=== PATIENT | female | born 1970 | race Caucasian/White ===

== ENCOUNTER → 2017-06-12 | Outpatient (CLI) | payer MEDICARE, OTHER ==
[~2017-06-12] MED LIST: ALBIPROI; ALBIPROI IH; ALBU90OI; ALBU90OI INH; ALBUIS IH; ALBUTEROL UPDRAFT; AMOX500 PO; ARIP10 PO; AZIT250 PO; AZIT500 PO; BENZ1 PO; Bactrim Ds Tab1 EACH PO; Benztropine Mesy1 MG; CALCPOTTC TP; CALMAGZIN; CELEBREX 200MG; CEPH500 PO; CERTAGEN PO; CIPR500 PO; CODGUAEL PO; Cleocin HCl150 MG PO; DICL50ER; DIPH25; DIPH25 PO; DIPH50; DULO30 PO; DULO60; DULO60 PO; ESCI10; ESCI20; ESCI20 PO; ESOM20 PO; FLUSAL2505; FLUSAL2505 IH; Flovent 110 MCG12 GM; HYDACE5; HYDACE5 PO; INVEGA PO; LAVAP4L PO; LEVFLO250 PO; LEVFLO500 PO; LEVSOD25 PO; LEVSOD50 PO; LEVSOD75 PO; LITH300C; LITH300C PO; LITH450ER; LITH450ER PO; LORA1 PO; LORA2 PO; LOVA20; LOVA20 PO; LOVASTATIN PO; Lovastatin20 MG; MAGCIT300 PO; METF500 PO; METF500C; MISO200; MONT10T; MONT10T PO; MULVITMINE PO; MUPI2TO TOP; OLAN10 PO; OLAN20 MM; OMEP20ER; OMEP20ER PO; OXCA300; OXCA300 PO; PENVK500 PO; POLY17UD PO; PRED10 PO; PRED20 PO; PROACE100; PROACE100 PO; Prilosec Otc20 MG; QUET200; QUET200 PO; QUET25 PO; RANI150; RXLORA1 PO; SULTRIDS PO; SULTRIEL PO; SULTRISS PO; TEGRETOL; TOPI100; TOPI100 PO; TOPI15C; TOPI25; TRAM50; TRAM50 PO; TRAZ100; TRAZODONE 200 MG; TRIA80TC; TRIA80TC TOP; Ventolin Soln3 ML; Verotin-Gr Cap1 EACH PO; Zofran Odt8 MG SL
[2017-06-12 13:30] LABS: Source, Urine Clean Catch
[2017-06-12 16:57] LABS: Bilirubin, Urine Neg (Neg); Blood, Urine 1+ (Neg); Glucose Qualitative, Urine Neg (Neg); Ketones, Urine Neg (Neg); Leukocyte Esterase, Urine 3+ (Neg); Nitrite, Urine Neg (Neg); Protein, Urine Neg (Neg); Urobilinogen, Urine NORM (Normal); pH, Urine 6.5 (5.0-8.0)
[2017-06-12 16:58] LABS: Appearance, Urine Hazy (Clear); Color, Urine Yellow (P-Yellow)
[2017-06-12 16:59] LABS: Bacteria Mod /hpf; Red Blood Cells, Urine Not Seen /hpf (0-2); Squamous Epithelial Cells Few /hpf (Few); White Blood Cells, Urine 25-50 /hpf (0-5)
== END ==
LOC: LAB 13:29
PROVIDERS: Nurse Practitioner Family
DX: N39.0 Urinary tract infection, site not specified (principal)
CPT/HCPCS: 81001; 87077; 87086; 87186

== ENCOUNTER → 2017-09-10 | Outpatient (CLI) | payer MEDICARE, OTHER ==
[~2017-09-10] MED LIST changes: -Benztropine Mesy1 MG; -DULO60; -LEVSOD75 PO; -Lovastatin20 MG; -TOPI15C; -Verotin-Gr Cap1 EACH PO
[2017-09-10 18:11] LABS: BASOPHILS ABSOLUTE AUTO 0.05 K/mm3 (0.00-0.23); BASOPHILS PERCENT AUTO 1 % (0-2); EOSINOPHILS ABSOLUTE AUTO 0.24 K/mm3 (0.00-0.68); EOSINOPHILS PERCENT AUTO 3 % (0-6); Hematocrit 39.9 % (33.0-51.0); Hemoglobin 13.4 g/dL (11.5-16.0); IMMATURE GRAN ABSOLUTE AUTO 0.01 K/mm3 (0.00-0.10); IMMATURE GRAN PERCENT AUTO 0 % (0-1); LYMPHOCYTES PERCENT AUTO 23 % (21-46); MONOCYTES ABSOLUTE AUTO 0.48 K/mm3 (0.16-1.47); MONOCYTES PERCENT AUTO 6 % (4-13); Mean Corpuscular HGB 32.4 pg (26.0-34.0); Mean Corpuscular HGB Conc 33.6 g/dL (31.5-36.5); Mean Corpuscular Volume 97 fL (80-100); NEUTROPHILS ABSOLUTE AUTO 5.05 K/mm3 (1.96-9.15); NEUTROPHILS PERCENT AUTO 67 % (41-73); Platelet Count 252 K/mm3 (150-400); RDW Coefficient Variation 13.7 % (11.7-14.2); RDW Standard Deviation 49.1 fL (35.1-46.3); Red Blood Cell Count 4.13 M/mm3 (3.80-5.20); White Blood Cell Count 7.53 K/mm3 (4.00-11.30)
[2017-09-10 19:02] LABS: Free Thyroxine 0.98 ng/dL (0.70-1.60); Very Low Density Lipoprot Chol 27 mg/dL (6-32)
[2017-09-10 19:21] LABS: Alanine Aminotransfer (ALT/SGP 17 U/L (12-78); Albumin, Blood 3.7 g/dL (3.4-5.0); Albumin/Globulin Ratio 1.2 (0.8-1.8); Alk Phos 74 U/L (50-136); Anion Gap 8 mmol/L (6-16); Aspartate Aminotrans (AST/SGOT 14 U/L (12-37); Bilirubin, Total 0.3 mg/dL (0.1-1.0); Blood Urea Nitrogen 20 mg/dL (8-24); Bun/Creatinine Ratio 13.3 (12.0-20.0); CHOL/HDL RATIO 3.3; CO2, Blood 21 mmol/L (21-32); Calcium, Blood 8.7 mg/dL (8.5-10.1); Chloride, Blood 116 mmol/L (98-108); Cholesterol 125 mg/dL (50-200); Globulin, Blood 3.2 g/dL (2.2-4.0); Glomerular Filtration Rate 40 (60-); Glucose, Blood 87 mg/dL (70-99); HDL Cholesterol 38 mg/dL (>39); LDL/HDL RATIO 1.6; Low Density Lipoprotein Chol 60 mg/dL (0-110); Potassium, Blood 4.3 mmol/L (3.5-5.5); Sodium, Blood 145 mmol/L (136-145); Total Protein, Blood 6.9 g/dL (6.4-8.2); Triglycerides 135 mg/dL (30-160)
== END | disposition home or self-care (01) ==
LOC: LAB 17:30 → LAB SHORT 17:30
PROVIDERS: Nurse Practitioner Primary Care
DX: E11.9 Type 2 diabetes mellitus without complications (principal); E03.9 Hypothyroidism, unspecified
CPT/HCPCS: 80053; 80061; 84439; 84443; 85025

== ENCOUNTER 2018-02-06 03:25 | Emergency (ER) | payer MEDICARE, OTHER ==
[~2018-02-06] VITALS: Ht 162.6 cm; Wt 68.0 kg
[2018-02-06] MEDS ORDERED: Bactrim Ds Tab1 EACH PO (03:57)
== END 2018-02-06 04:22 | disposition home or self-care (01) ==
LOC: ER 03:25
DX: S70.262A Insect bite (nonvenomous), left hip, initial encounter (principal); L03.116 Cellulitis of left lower limb; F31.9 Bipolar disorder, unspecified; J45.909 Unspecified asthma, uncomplicated; Z88.8 Allergy status to other drugs, medicaments and biological substances; Z88.6 Allergy status to analgesic agent; Z88.1 Allergy status to other antibiotic agents; Z79.899 Other long term (current) drug therapy; Z79.51 Long term (current) use of inhaled steroids; W57.XXXA Bitten or stung by nonvenomous insect and other nonvenomous arthropods, initial encounter
CPT/HCPCS: 99282

== ENCOUNTER → 2018-08-21 | Outpatient (CLI) | payer MEDICARE, OTHER ==
[~2018-08-21] MED LIST changes: +Benztropine Mesy1 MG; +DULO60; +LEVSOD75 PO; +Lovastatin20 MG; +TOPI15C; +Verotin-Gr Cap1 EACH PO
[2018-08-21 19:20] LABS: Follicle Stimulating Hormone 4.8 mIU/ml; Luteinizing Hormone 12.6 mIU/ml
[2018-08-23 15:07] LABS: HPV 16 Negative (Negative); HPV 18 Negative (Negative); HPV OTHER HR TYPES Negative (Negative)
== END ==
LOC: LAB 17:56 → LAB SHORT 17:56
PROVIDERS: Registered Nurse Community Health
DX: Z01.419 Encounter for gynecological examination (general) (routine) without abnormal findings (principal); N95.1 Menopausal and female climacteric states
CPT/HCPCS: 83001; 83002; 87624; G0123

== ENCOUNTER 2019-06-21 17:35 | Inpatient (IN) | payer MEDICARE, OTHER ==
[~2019-06-21] VITALS: Ht 162.6 cm; Wt 72.2 kg
[~2019-06-21 17:35] MED LIST changes: +Benztropine Mesy1 MG PO; -LEVSOD75 PO; -Lovastatin20 MG; +Lovastatin20 MG PO
[2019-06-21 18:39] LABS: BASOPHILS ABSOLUTE AUTO 0.07 K/mm3 (0.00-0.23); BASOPHILS PERCENT AUTO 0 % (0-2); EOSINOPHILS ABSOLUTE AUTO 0.02 K/mm3 (0.00-0.68); EOSINOPHILS PERCENT AUTO 0 % (0-6); Hematocrit 34.7 % (33.0-51.0); Hemoglobin 11.3 g/dL (11.5-16.0); IMMATURE GRAN ABSOLUTE AUTO 0.82 K/mm3 (0.00-0.10); IMMATURE GRAN PERCENT AUTO 4 % (0-1); LYMPHOCYTES ABSOLUTE AUTO 1.12 K/mm3 (0.84-5.20); LYMPHOCYTES PERCENT AUTO 6 % (21-46); MONOCYTES ABSOLUTE AUTO 0.83 K/mm3 (0.16-1.47); MONOCYTES PERCENT AUTO 4 % (4-13); Mean Corpuscular HGB 30.2 pg (26.0-34.0); Mean Corpuscular HGB Conc 32.6 g/dL (31.5-36.5); Mean Corpuscular Volume 93 fL (80-100); Mean Platelet Volume 10.4 fL (9.1-12.4); NEUTROPHILS PERCENT AUTO 85 % (41-73); Platelet Count 405 K/mm3 (150-400); RDW Coefficient Variation 14.1 % (11.7-14.2); RDW Standard Deviation 48.4 fL (35.1-46.3); Red Blood Cell Count 3.74 M/mm3 (3.80-5.20); White Blood Cell Count 18.66 K/mm3 (4.00-11.30)
[2019-06-21 19:00] LABS: Alanine Aminotransfer (ALT/SGP 104 U/L (12-78); Albumin, Blood 2.2 g/dL (3.4-5.0); Albumin/Globulin Ratio 0.3 (0.8-1.8); Alk Phos 264 U/L (50-136); Anion Gap 12 mmol/L (6-16); Aspartate Aminotrans (AST/SGOT 87 U/L (12-37); Bilirubin, Total 0.6 mg/dL (0.1-1.0); Blood Urea Nitrogen 49 mg/dL (8-24); Bun/Creatinine Ratio 12.1 (12.0-20.0); CO2, Blood 17 mmol/L (21-32); Calcium, Blood 9.3 mg/dL (8.5-10.1); Chloride, Blood 106 mmol/L (98-108); Creatinine, Blood 4.04 mg/dL (0.40-1.00); Globulin, Blood 6.8 g/dL (2.2-4.0); Glomerular Filtration Rate 13 (60-); Glucose, Blood 161 mg/dL (70-99); Potassium, Blood 3.2 mmol/L (3.5-5.5); Sodium, Blood 135 mmol/L (136-145)
[2019-06-21 19:01] LABS: Source, Urine Clean Catch
[2019-06-21 19:12] LABS: Appearance, Urine Hazy (Clear); Bilirubin, Urine Neg (Neg); Blood, Urine 3+ (Neg); Color, Urine Yellow (P-Yellow); Glucose Qualitative, Urine Neg (Neg); Ketones, Urine Neg (Neg); Leukocyte Esterase, Urine 3+ (Neg); Nitrite, Urine Neg (Neg); Protein, Urine 2+ (Neg); Urobilinogen, Urine NORM (Normal)
[2019-06-21 19:23] LABS: White Blood Cells, Urine 50-100 /hpf (0-5)
[2019-06-21 19:24] LABS: Bacteria Many /hpf; Squamous Epithelial Cells Few /hpf (Few)
[2019-06-21 20:20] LABS: Acetaminophen, Random <2.0 ug/mL (10.0-30.0); CPK Creatine Kinase 32 U/L (26-193); Ethanol (Alcohol), Blood, Med <3 mg/dL; Salicylate <1.7 mg/dL (2.8-20.0)
[2019-06-21 20:26] LABS: U Amphetamine Screen Not Detected; U Barbituate Screen Not Detected; U Benzodiazapine Screen Not Detected; U Buprenorphine Screen Not Detected; U Cannabinoids Screen Not Detected; U Cocaine Screen Not Detected; U Methadone Screen Not Detected; U Methamphetamine Screen Not Detected; U Opiates Screen Not Detected; U Oxycodone Screen Not Detected; U Phencyclidine Screen DETECTED; U Propoxyphene Screen Not Detected
[2019-06-21 21:05] LABS: Lithium <0.20 mmol/L (0.60-1.20)
[2019-06-22 04:49] LABS: BASOPHILS ABSOLUTE AUTO 0.06 K/mm3 (0.00-0.23); BASOPHILS PERCENT AUTO 0 % (0-2); EOSINOPHILS PERCENT AUTO 0 % (0-6); Hematocrit 24.6 % (33.0-51.0); Hemoglobin 8.1 g/dL (11.5-16.0); IMMATURE GRAN ABSOLUTE AUTO 0.87 K/mm3 (0.00-0.10); IMMATURE GRAN PERCENT AUTO 4 % (0-1); LYMPHOCYTES ABSOLUTE AUTO 0.72 K/mm3 (0.84-5.20); LYMPHOCYTES PERCENT AUTO 4 % (21-46); MONOCYTES ABSOLUTE AUTO 0.87 K/mm3 (0.16-1.47); MONOCYTES PERCENT AUTO 4 % (4-13); Mean Corpuscular HGB Conc 32.9 g/dL (31.5-36.5); Mean Corpuscular Volume 91 fL (80-100); Mean Platelet Volume 10.4 fL (9.1-12.4); NEUTROPHILS ABSOLUTE AUTO 17.25 K/mm3 (1.96-9.15); NEUTROPHILS PERCENT AUTO 87 % (41-73); Platelet Count 343 K/mm3 (150-400); RDW Coefficient Variation 14.1 % (11.7-14.2); RDW Standard Deviation 47.1 fL (35.1-46.3); White Blood Cell Count 19.77 K/mm3 (4.00-11.30)
--- NOTE | 2019-06-22 04:49 | NUR ---
SHIFT SUMMARY PT ARRIVED TO FLOOR NAUSEATED AND VOMITED UPON ARRIVAL. PT HAS BEEN MEDICATED FOR N/V AND PAIN WITH LITTLE RELIEF. ORDER FOR FENTANYL AND OT DOSE OF REGLAN WAS OBTAINED FROM PROVIDER. PT HAS NOT SLEPT MUCH DURING THE SHIFT. PT IS CURRENTLY AWAKE AND MORE COMFORTABLE THAN WHEN SHE ARRIVED. CALL LIGHT IN REACH.
[2019-06-22 05:09] LABS: Bun/Creatinine Ratio 13.2 (12.0-20.0); Calcium, Blood 8.1 mg/dL (8.5-10.1); Creatinine, Blood 3.26 mg/dL (0.40-1.00); Potassium, Blood 3.5 mmol/L (3.5-5.5)
--- NOTE | 2019-06-22 18:46 | NUR ---
SHIFT SUMMARY PT INDEPENDENT TO BATHROOM. REPORTS PAIN TO BACH THAT RESOLVES WHEN SHE REPOSITIONS IN BED OR GETS UP IN A SITTING POSITION. HAS A TENDENCY TO SLOUCH. HAD EMESIS WITH COUGHING SEVERAL TIMES TODAY BUT AFTER TESSALON GIVEN COUGHING DECREASED AND NO FURTHER EMESIS. OFFERED TO ADVANCE DIET BUT PT DECLINED AT THIS TIME. NO FEVERS NOTED.
[2019-06-23 04:56] LABS: Hematocrit 22.7 % (33.0-51.0); Hemoglobin 7.6 g/dL (11.5-16.0); Mean Corpuscular HGB 30.8 pg (26.0-34.0); Mean Corpuscular HGB Conc 33.5 g/dL (31.5-36.5); Mean Corpuscular Volume 92 fL (80-100); Mean Platelet Volume 10.3 fL (9.1-12.4); Platelet Count 366 K/mm3 (150-400); RDW Coefficient Variation 14.3 % (11.7-14.2); RDW Standard Deviation 48.2 fL (35.1-46.3); Red Blood Cell Count 2.47 M/mm3 (3.80-5.20)
[2019-06-23 05:18] LABS: Albumin, Blood 1.6 g/dL (3.4-5.0); Anion Gap 9 mmol/L (6-16); Blood Urea Nitrogen 31 mg/dL (8-24); Bun/Creatinine Ratio 11.2 (12.0-20.0); CO2, Blood 20 mmol/L (21-32); Calcium, Blood 8.8 mg/dL (8.5-10.1); Chloride, Blood 118 mmol/L (98-108); Creatinine, Blood 2.77 mg/dL (0.40-1.00); Glomerular Filtration Rate 19 (60-); Glucose, Blood 104 mg/dL (70-99); Phosphorus, Blood 3.4 mg/dL (2.5-4.9); Potassium, Blood 3.4 mmol/L (3.5-5.5); Sodium, Blood 147 mmol/L (136-145)
--- NOTE | 2019-06-23 05:59 | NUR ---
SHIFT SUMMARY- NO ACUTE CHANGES OVERNIGHT. PT. APPEARED TO HAVE RESTED COMFORTABLY T/O THE SHIFT, NO APPARENT DISTRESS NOTED. PT. DENIED ANY PAIN OR DISCOMFORT LAST NIGHT. IV FLUIDS INFUSING. PT. WAS ABLE TO GET UP TO THE BATHROOM W/1ASSIST. CALL LIGHT WITHIN REACH AND SIDE RAILS UP X2. WILL CONT TO MONITOR.
[2019-06-23] MEDS ORDERED: HYDPAM50 PO (13:14)
--- NOTE | 2019-06-23 14:26 | NUR ---
PT GAVE PERMISSION TO HELP WITH CARE ON 06/23/2019 FOR 06/24/2019
--- NOTE | 2019-06-23 19:17 | NUR ---
SHIFT SUMAMRY: NO ACUTE CHANGES TO REPORT THIS SHIFT. PT A&O; CALM AND COOEPRATIVE WITH CARE; DEVELOPMENTALLY DELAYED. NO C/O PAIN OR NAUSEA THIS SHIFT. FLUIDS D/C'd THIS SHIFT; SALINE LOCK. DIET ADVANCED TO FULL LIQUIDS; PT TOLERATING WELL. REPORT GIVEN TO ONCOMING RN.
--- NOTE | 2019-06-23 19:24 | NUR ---
RECEIVED BEDSIDE REPORT FROM TAMARA RN. PT SITTING ON BED CROSS LEGGED, RESP E/U ON RA. USES CALL LT APPROPRIATELY. SALINE LOCKED. WILL MONITOR AND PROVIDE CARE T/O SHIFT. CALL LT IN REACH.
--- NOTE | 2019-06-23 21:03 | NUR ---
PT WATCHING TV. ICE WATER GIVEN TO PT. PT TOLERATING WELL. CALL LT IN REACH.
--- NOTE | 2019-06-23 23:35 | NUR ---
PT RESTING AT THIS TIME. CALL LT IN REACH.
--- NOTE | 2019-06-24 02:16 | NUR ---
PT CAME OUT OF HER ROOM AND WAS WALKING NEAR THE ACC DESK WITHOUT DIFFICULTY. WENT BACK INTO HER ROOM.
--- NOTE | 2019-06-24 05:08 | NUR ---
SHIFT SUMMARY: PT IS DEVELOPMENTALLY SLOW. SPEECH IS SLOW. ORIENTED TO OWN ABILITY. NO COMPLAINTS DURING SHIFT. AMBULATES MOSTLY INDEPENDENTLY WITHOUT DIFFICULTY. RESTED WELL T/O SHIFT. IS ABLE TO MAKE HER NEEDS KNOWN. VERY FLAT AFFECT. TOLERATED FULL LIQUID DIET WELL, REGULAR BREAKFAST FOR THIS MORNING. NO ACUTE CHANGES. WILL CONTINUE TO MONITOR UNTIL SHIFT REPORT.
[2019-06-24 05:24] LABS: BASOPHILS ABSOLUTE AUTO 0.06 K/mm3 (0.00-0.23); BASOPHILS PERCENT AUTO 0 % (0-2); EOSINOPHILS ABSOLUTE AUTO 0.15 K/mm3 (0.00-0.68); EOSINOPHILS PERCENT AUTO 1 % (0-6); Hematocrit 23.5 % (33.0-51.0); Hemoglobin 7.6 g/dL (11.5-16.0); IMMATURE GRAN ABSOLUTE AUTO 0.59 K/mm3 (0.00-0.10); IMMATURE GRAN PERCENT AUTO 4 % (0-1); LYMPHOCYTES ABSOLUTE AUTO 1.64 K/mm3 (0.84-5.20); LYMPHOCYTES PERCENT AUTO 11 % (21-46); MONOCYTES ABSOLUTE AUTO 0.94 K/mm3 (0.16-1.47); MONOCYTES PERCENT AUTO 6 % (4-13); Mean Corpuscular HGB 30.2 pg (26.0-34.0); Mean Corpuscular HGB Conc 32.3 g/dL (31.5-36.5); Mean Corpuscular Volume 93 fL (80-100); Mean Platelet Volume 10.2 fL (9.1-12.4); NEUTROPHILS PERCENT AUTO 77 % (41-73); Platelet Count 354 K/mm3 (150-400); RDW Coefficient Variation 14.6 % (11.7-14.2); RDW Standard Deviation 49.8 fL (35.1-46.3); Red Blood Cell Count 2.52 M/mm3 (3.80-5.20); White Blood Cell Count 14.58 K/mm3 (4.00-11.30)
[2019-06-24 05:41] LABS: Albumin, Blood 1.5 g/dL (3.4-5.0); Anion Gap 7 mmol/L (6-16); Blood Urea Nitrogen 25 mg/dL (8-24); CO2, Blood 21 mmol/L (21-32); Calcium, Blood 8.5 mg/dL (8.5-10.1); Chloride, Blood 117 mmol/L (98-108); Creatinine, Blood 2.49 mg/dL (0.40-1.00); Glomerular Filtration Rate 22 (60-); Glucose, Blood 108 mg/dL (70-99); Phosphorus, Blood 2.5 mg/dL (2.5-4.9); Potassium, Blood 4.3 mmol/L (3.5-5.5); Sodium, Blood 145 mmol/L (136-145)
--- NOTE | 2019-06-24 09:46 | NUR ---
SHIFT ASSESSMENT DOCUMENTED BY SUPER[employer]OR [employer]. PTS IV PAINFUL AND DC'D. SPOKE WITH DR MICHAEL PATEL TO LEAVE IV OUT. DR WILL SEE PT AND EVALUATE FOR PO ABX.
[2019-06-24] MEDS ORDERED: Lovastatin20 MG PO (10:48)
[2019-06-24] MEDS ORDERED: LEVSOD75 PO (10:48)
[2019-06-24] MEDS ORDERED: Zyprexa20 MG PO (10:49)
[2019-06-24] MEDS ORDERED: CIPR500 PO (10:50)
--- NOTE | 2019-06-24 11:48 | NUR ---
4419 PT DISCHARGED REVIEWED DC INSTRUCTIONS AND MEDICATIONS WITH PT AND HER SISTER, AT PTS REQUEST. PT AND SISTER VERB UNDERSTANDING. NEW RX FAXED TO [facility]. PERSONAL BELONGINGS WITH PT. PT DECLINES WC RIDE OUT. PT AMBULATES IND WITH STEADY GAIT ACCOMPANIED BY THIS RN TO PT ENTRANCE.
== END 2019-06-24 11:35 | disposition home or self-care (01) | DRG 872 ==
LOC: ER 17:35 → MEDS 23:39
PROVIDERS: Emergency Medicine; Internal Medicine; ADMIT Internal Medicine
DX: A41.89 Other specified sepsis (principal); N10 Acute pyelonephritis; N17.9 Acute kidney failure, unspecified; D62 Acute posthemorrhagic anemia; E87.1 Hypo-osmolality and hyponatremia; R65.20 Severe sepsis without septic shock; F31.9 Bipolar disorder, unspecified; E87.6 Hypokalemia; E03.9 Hypothyroidism, unspecified; E11.22 Type 2 diabetes mellitus with diabetic chronic kidney disease; N18.3 Chronic kidney disease, stage 3 (moderate); Z79.4 Long term (current) use of insulin; E78.5 Hyperlipidemia, unspecified; K27.9 Peptic ulcer, site unspecified, unspecified as acute or chronic, without hemorrhage or perforation
CPT/HCPCS: 36415; 71046; 74176; 80048; 80053; 80069; 80178; 81001; 82550; 83605; 83690; 85025; 85027; 87040; 87077; 87086; 87186; 96361; 96365; 96366; 96375; 99285-25; G0480; J0744; J2405; J2765; J3010; J3480; J7030; J7120

== ENCOUNTER → 2020-01-21 | Outpatient (CLI) | payer MEDICARE, OTHER ==
[~2020-01-21] MED LIST changes: +HYDPAM50 PO; +LEVSOD75 PO; +Zyprexa20 MG PO
== END | disposition home or self-care (01) ==
LOC: LAB 11:45 → LAB SHORT 11:45
DX: L08.9 Local infection of the skin and subcutaneous tissue, unspecified (principal)
CPT/HCPCS: 87070; 87075; 87077; 87147; 87186; 87205

== ENCOUNTER → 2020-03-17 | Outpatient (CLI) | payer MEDICARE, OTHER ==
[2020-03-18 13:19] LABS: Creatinine Urine 26.5 mg/dL (27.00-270.00); Microalbumin, Urine Quant. 24.9 mg/L (0.000-20.000); Protein, Urine Quantitative 10.9 mg/dL (0.0-11.9)
== END | disposition home or self-care (01) ==
LOC: LAB UCHC 07:00 → LAB SHORT 07:00
PROVIDERS: Internal Medicine Nephrology
DX: N18.4 Chronic kidney disease, stage 4 (severe) (principal); D63.1 Anemia in chronic kidney disease; N25.81 Secondary hyperparathyroidism of renal origin; E55.9 Vitamin D deficiency, unspecified; E78.00 Pure hypercholesterolemia, unspecified; R76.9 Abnormal immunological finding in serum, unspecified; R94.5 Abnormal results of liver function studies; R94.6 Abnormal results of thyroid function studies
CPT/HCPCS: 81050; 82043; 82570; 84156

== ENCOUNTER 2020-08-25 11:11 | Day surgery (SDC) | payer MEDICARE, OTHER ==
[~2020-08-25] VITALS: Ht 162.6 cm; Wt 78.0 kg
[~2020-08-25 11:11] MED LIST changes: +Ventolin5 MG/1 ML INH
--- NOTE | 2020-08-25 11:55 | NUR ---
PATIENT ARRIVED FOR AN [facility] FORMATION, PATIENT OF DR. GARRETT AND DR. MULLIGAN. SHE IS BIPOLAR AND HAS STUDDER SPEECH. WHEN THE RN WAS STARTING HER IV TO THE RIGHT ANTECUBITAL IT WAS NOTED THAT THE PATIENT HAS A HUMAN BITE JASMINA ON HER RIGHT UPPER ARM. WHEN QUESTIONED, SHE DENIED THAT ANYONE OR ANY ANIMAL HAD BIT HER. I NOTIFIED DIRECTOR CENTER.
--- NOTE | 2020-08-25 12:08 | NUR ---
ATFER SPEAKING TO THE [place] HAND ON STAFF THE RN WAS DIRECTED TO CALL IN A REPORT TO THE APS HOTLINE. A CALL WAS MADE AND MESSAGE LEFT @ [phone]
--- NOTE | 2020-08-25 13:35 | NUR ---
PATIENT RETURNED FROM THE [facility], LEFT ARM WITH ONE CLOTH DOT IN PLACE AND ONE ON THE LEFT SHOULDER. BOTH AREAS CDI, NO HEMATOMA, NO BLEEDING. PATIENT CAN MOVE LEFT ARM BUT UNABLE TO LIFT UP MORE THAN A FEW INCHES OFF THE BED. MONITOR APPLIED. CALL LIGHT IN REACH. SBAR GIVEN FROM TOM PEARCE. VVS. AAOX3. MEAL TRAY SET UP AND PATIENT ABLE TO FEED SELF.
[2020-08-25] MEDS ORDERED: CLOP75 PO (14:57)
--- NOTE | 2020-08-25 15:20 | NUR ---
PATIENT UP AND DRESSED BY SELF. IV SITE DCED WITH CATHETER INTACT. SOFT SLING IN PLACE TO LEFT ARM. DENIES DISCOMFORT. PLAVIX 225MG PO GIVEN TO PATIENT. PLAVIX PRESCRIPTION CALLED IN TO [facility]. CLOTH DOT DRESSING D&I TO LEFT INNER ARM. SITE SOFT AND NONTENDER. DISCHARGE INSTRUCTIONS AND PRECAUTIONS GIVEN TO SISTER YOLY AND PATIENT. SITE REVEIWED WITH SISTER AND PATIENT. PATIENT TAKEN TO CAR VIA WHEELCHAIR.
[2020-10-12] MEDS ORDERED: Triamcinolone A15 G3 TOP (14:13)
== END 2020-08-25 16:00 | disposition home or self-care (01) ==
LOC: MHTC 11:11
DX: E11.22 Type 2 diabetes mellitus with diabetic chronic kidney disease (principal); N18.6 End stage renal disease; J45.909 Unspecified asthma, uncomplicated; E78.5 Hyperlipidemia, unspecified; Z99.2 Dependence on renal dialysis; Z88.1 Allergy status to other antibiotic agents; Z88.8 Allergy status to other drugs, medicaments and biological substances; Z91.030 Bee allergy status; Z88.6 Allergy status to analgesic agent; Z91.038 Other insect allergy status
CPT/HCPCS: 64415; 76937; 99152; 99153; A9270; C1725; C1769; C1889; C1894; G2170; J1644; J2250; J3010; J7030; J7040

== ENCOUNTER 2020-10-13 10:57 | Day surgery (SDC) | payer MEDICARE, OTHER ==
[~2020-10-13] VITALS: Ht 162.6 cm; Wt 77.6 kg
[~2020-10-13 10:57] MED LIST changes: +CLOP75 PO; +Triamcinolone A15 G3 TOP
--- NOTE | 2020-10-13 16:40 | NUR ---
PATIENT RETURNED TO [facility]OVERY ROOM A&O. TR BAND IN PLACE WITH 12CC IN BAND. SITE SOFT AND NONTENDER
--- NOTE | 2020-10-13 18:26 | NUR ---
AIR REMOVED FROM TR BAND. SITE REMAINS STABLE.
--- NOTE | 2020-10-13 19:04 | NUR ---
patient verbalized understanding of discharge instructions and precaution. all questioned answered. written instructions sent with patient. left radial site soft and nontender wrist board in place. sling placed to left arm. patient transferred to waiting car by Earline SANTOS.
== END 2020-10-13 16:50 | disposition home or self-care (01) ==
LOC: MHTC 10:57
DX: N18.6 End stage renal disease (principal); E11.22 Type 2 diabetes mellitus with diabetic chronic kidney disease; F31.9 Bipolar disorder, unspecified; E78.5 Hyperlipidemia, unspecified; Z88.1 Allergy status to other antibiotic agents; Z88.8 Allergy status to other drugs, medicaments and biological substances; Z79.899 Other long term (current) drug therapy; Z20.822 Contact with and (suspected) exposure to COVID-19
CPT/HCPCS: 36902; 76937; 99152; 99153; C1725; C1769; C1887; C1894; J1644; J2250; J3010; J7030; J7040; Q9967

== ENCOUNTER 2020-12-08 09:26 | Day surgery (SDC) | payer MEDICARE, OTHER ==
--- NOTE | 2020-12-08 12:35 | NUR ---
PT TO RECOVERY ROOM POST PROCEDURE. PT AWAKE AND CONVERSING APPROPRIATELY; REPORTS MIN DISCOMFORT AT L RADIAL SITE /-DENIES NEED FOR MEDICATION. MONITOR SR 60'S, B/P 115/85, AFEBRILE, SPO2 99% RA. L RADIAL SITE NO SWELLING/HEMATOMA, TR BAND IN PLACE; LUE POSITIVE PLEUTH POST TR BAND PLACEMENT.
--- NOTE | 2020-12-08 13:54 | NUR ---
TR BAND FULLY DEFLATED, SITE WITHOUT SWELLING/HEMATOMA, WRIST IMMOBILIZER IN PLACE.
--- NOTE | 2020-12-08 14:20 | NUR ---
PT AMB IN RECOVERY ROOM, SITE UNCHANGED WITH ACTIVITY.
--- NOTE | 2020-12-08 14:30 | NUR ---
PT DRESSED WITH MIN ASSISTANCE, SITE UNCHANGED. TR BAND REMOVED CLOTH DOT AND WRIST IMMOBILIZER PLACED; IV REMOVED-CANNULA INTACT.
--- NOTE | 2020-12-08 14:40 | NUR ---
PT AND SISTER RECEIVED DISCHARGE INSTRUCTIONS, MED LIST AND AFTER CARE INSTRUCTIONS; VERBALIZED GOOD UNDERSTANDING. PT LEFT FACILITY VIA W/C, CONDITION STABLE.
== END 2020-12-08 14:40 | disposition home or self-care (01) ==
LOC: MHTC 09:26
DX: N18.6 End stage renal disease (principal); E11.22 Type 2 diabetes mellitus with diabetic chronic kidney disease; J45.909 Unspecified asthma, uncomplicated; E78.5 Hyperlipidemia, unspecified; Z88.1 Allergy status to other antibiotic agents; Z88.8 Allergy status to other drugs, medicaments and biological substances; Z91.030 Bee allergy status; Z79.899 Other long term (current) drug therapy
CPT/HCPCS: 36902; 76937; 99152; 99153; C1725; C1769; C1887; C1894; J2250; J3010; J7030; Q9967

== ENCOUNTER 2021-01-17 07:45 | Day surgery (SDC) | payer MEDICARE, OTHER ==
[~2021-01-17] VITALS: Ht 162.6 cm; Wt 84.0 kg
--- NOTE | 2021-01-17 08:30 | NUR ---
AMBULATED TO RECOVERY ROOM. PT ALERT AND ORIENTED. MRSA RESULTS DISCUSSED WITH CARI SANTOS INFECTION CONTROL. NO ISOLATION REQUIRED.
[2021-01-17] MEDS ORDERED: BENZ1 PO (09:02)
--- NOTE | 2021-01-17 11:30 | NUR ---
TO DOG SHOW JUDGE VIA JOSHUA FOR PROCEDURE.
--- NOTE | 2021-01-17 13:15 | NUR ---
TO RECOVERY ROOM VIA RNEY. RIGHT GROIN SITE HAS SMALL TENER SPOT WHEN PALPATING. LEFT BRACHIAL SITE SOFT NONTENDER NO BLEEDING AT SITE.
--- NOTE | 2021-01-17 15:13 | NUR ---
Right groin soft and tender. Pt continually crossing legs, bending knees and moving.
--- NOTE | 2021-01-17 15:55 | NUR ---
AMBULATED TO BATHROOM. TOLERATED WELL. NO BLEEDING AT SITE BUT DOES HAVE OLD BLOOD FROM EARLIER. IV removed intact. 2X2,COBAN AND MANUAL PRESSURE APPLIED.
--- NOTE | 2021-01-17 16:00 | NUR ---
DRESSED FOR DISCHARGE. DISCHARGE INSTRUCTIONS GIVEN WITH VERBAL AND WRITTEN UNDERSTANDING.
--- NOTE | 2021-01-17 16:05 | NUR ---
DISCHARGED HOME VIA WHEELCHAIR. SISTER DRIVING.
== END 2021-01-17 16:05 | disposition home or self-care (01) ==
LOC: MHTC 07:45
DX: I77.9 Disorder of arteries and arterioles, unspecified (principal); N18.6 End stage renal disease; E11.22 Type 2 diabetes mellitus with diabetic chronic kidney disease; J45.909 Unspecified asthma, uncomplicated; F31.9 Bipolar disorder, unspecified; Z88.8 Allergy status to other drugs, medicaments and biological substances; Z88.1 Allergy status to other antibiotic agents; Z91.030 Bee allergy status; Z99.2 Dependence on renal dialysis
CPT/HCPCS: 36140; 36901; 75710; 75774; 75820; 76937; 99152; 99153; C1760; C1769; C1887; C1894; J1644; J2250; J3010; J7030; J7040; Q9967

== ENCOUNTER → 2021-06-13 | Outpatient (CLI) | payer MEDICARE, OTHER | END | disposition home or self-care (01) | LOC: LAB SHORT 14:22 | DX: S61.209A Unspecified open wound of unspecified finger without damage to nail, initial encounter (principal) | CPT/HCPCS: 87070; 87077; 87147; 87186; 87205 ==

== ENCOUNTER → 2023-09-24 | Outpatient (CLI) | payer MEDICARE, OTHER | LOC: LAB 15:20 → LAB SHORT 15:20 | DX: R32 Unspecified urinary incontinence (principal) | CPT/HCPCS: 87077; 87086; 87186 ==

== ENCOUNTER 2023-12-07 17:48 | Emergency (ER) | payer MEDICARE, OTHER ==
[~2023-12-07] VITALS: Ht 162.6 cm; Wt 65.8 kg
[2023-12-07 17:50] VITALS: BP 144/99
[2023-12-07] MEDS ORDERED: NS 1,000 ML IV SCH (17:50)
[2023-12-07 18:11] LABS: BASOPHILS ABSOLUTE AUTO 0.08 K/mm3 (0.00-0.23); BASOPHILS PERCENT AUTO 1 % (0-2); EOSINOPHILS ABSOLUTE AUTO 0.02 K/mm3 (0.00-0.68); EOSINOPHILS PERCENT AUTO 0 % (0-6); Hematocrit 31.6 % (33.0-51.0); Hemoglobin 11.1 g/dL (11.5-16.0); IMMATURE GRAN ABSOLUTE AUTO 0.09 K/mm3 (0.00-0.10); IMMATURE GRAN PERCENT AUTO 1 % (0-1); LYMPHOCYTES ABSOLUTE AUTO 1.62 K/mm3 (0.84-5.20); LYMPHOCYTES PERCENT AUTO 13 % (21-46); MONOCYTES ABSOLUTE AUTO 1.02 K/mm3 (0.16-1.47); MONOCYTES PERCENT AUTO 8 % (4-13); Mean Corpuscular HGB 34.3 pg (26.0-34.0); Mean Corpuscular HGB Conc 35.1 g/dL (31.5-36.5); Mean Corpuscular Volume 98 fL (80-100); Mean Platelet Volume 10.2 fL (9.1-12.4); NEUTROPHILS ABSOLUTE AUTO 9.28 K/mm3 (1.96-9.15); NEUTROPHILS PERCENT AUTO 77 % (41-73); NRBC ABSOLUTE 0.02 K/mm3 (0.00-0.02); NRBC Auto 0.2 /100 WBC (0.0-0.2); Platelet Count 292 K/mm3 (150-400); RDW Coefficient Variation 13.6 % (11.7-14.2); RDW Standard Deviation 48.3 fL (35.1-46.3); Red Blood Cell Count 3.24 M/mm3 (3.80-5.20); White Blood Cell Count 12.11 K/mm3 (4.00-11.30)
[2023-12-07 18:31] LABS: Albumin, Blood 3.6 g/dL (3.4-5.0); Albumin/Globulin Ratio 0.9 (0.8-1.8); Bilirubin, Total 0.3 mg/dL (0.1-1.0); Bun/Creatinine Ratio 6.7 (12.0-20.0); Calcium, Blood 9.6 mg/dL (8.5-10.1); Creatinine, Blood 5.85 mg/dL (0.40-1.00); Globulin, Blood 4.2 g/dL (2.2-4.0); Magnesium, Blood 1.8 mg/dL (1.6-2.4); Potassium, Blood 3.8 mmol/L (3.5-5.5); Total Protein, Blood 7.8 g/dL (6.4-8.2)
== END 2023-12-07 20:34 | disposition home or self-care (01) ==
LOC: ER 17:48
PROVIDERS: Physician Assistant
DX: T67.5XXA Heat exhaustion, unspecified, initial encounter (principal); N18.9 Chronic kidney disease, unspecified; Z88.8 Allergy status to other drugs, medicaments and biological substances; Z88.1 Allergy status to other antibiotic agents; Z91.030 Bee allergy status; Z79.899 Other long term (current) drug therapy; E03.9 Hypothyroidism, unspecified; E78.5 Hyperlipidemia, unspecified; E11.9 Type 2 diabetes mellitus without complications; J45.909 Unspecified asthma, uncomplicated
CPT/HCPCS: 80053; 83735; 85025; 99284

== ENCOUNTER 2023-12-20 09:13 | Day surgery (SDC) | payer MEDICARE, OTHER ==
[~2023-12-20] VITALS: Ht 162.6 cm; Wt 110.0 kg
[~2023-12-20 09:13] MED LIST changes: +Calcium Acetat667 MG PO; +HYDHCL25 PO; +MERIBIN5 MG PO; +MIDO5 PO; +PANT40 PO; +PRENATAL TABLE1 EAC9 PO; +Seroquel Xr50 MG PO; -Verotin-Gr Cap1 EACH PO
[2023-12-20] MEDS ORDERED: NS 250 ML IV ONE (09:50)
[2023-12-20] MEDS ORDERED: Heparin Sodium 1000 Units/ML 10ML MDV ONE (09:50)
[2023-12-20] MEDS ORDERED: NS 1,000 ML IV ONE (10:44)
[2023-12-20] MEDS ORDERED: FentaNYL Citrate 50 MCG/ML 2 ML Injection ONE (10:44)
[2023-12-20] MEDS ORDERED: Midazolam HCl 1MG / ML 2ML Vial ONE (10:44)
[2023-12-20] MEDS ORDERED: Heparin Sodium 10,000 Units/ML 1ML MDV ONE (11:24)
--- NOTE | 2023-12-20 11:39 | NUR ---
PATIENT ARRIVED BACK TO RECOVERY ROOM SITTING UPRIGHT IN BED, CONVERSING APPROPRIATELY. VSS ON RA
[2023-12-20 11:41] VITALS: BP 144/118
[2023-12-20 11:45] VITALS: BP 112/74
[2023-12-20 12:00] VITALS: BP 121/87
[2023-12-20 12:15] VITALS: BP 124/83
[2023-12-20 12:33] VITALS: BP 119/91
[2023-12-20 12:44] VITALS: BP 107/81
--- NOTE | 2023-12-20 13:01 | NUR ---
DISCHARGE INSTRUCTIONS REVIEWED WITH PATIENT
--- NOTE | 2023-12-20 13:22 | NUR ---
Patient dischaged home at this time. PIV removed without difficulty, catheter intact. vss on ra. All patient belongings left with patient. Permacath site C/D/I soft/nontender, no evidence of bleeding. Patient ambulated to hospital entrance and medical transport able to provide transportation home
[2024-01-08] MEDS ORDERED: GABA100 PO (17:44)
[2024-01-09] MEDS ORDERED: QUETIAPINE FUMA5012 PO (02:24)
[2024-01-09] MEDS ORDERED: Benztropine Mesy1 MG PO (02:25)
[2024-01-09] MEDS ORDERED: DULOXETINE HCL60 M1 PO (02:25)
== END 2023-12-20 15:03 | disposition home or self-care (01) ==
LOC: MHTC 09:13
DX: T82.9XXA Unspecified complication of cardiac and vascular prosthetic device, implant and graft, initial encounter (principal); N18.6 End stage renal disease; I97.618 Postprocedural hemorrhage of a circulatory system organ or structure following other circulatory system procedure; E11.22 Type 2 diabetes mellitus with diabetic chronic kidney disease; E03.9 Hypothyroidism, unspecified; E78.5 Hyperlipidemia, unspecified; J45.909 Unspecified asthma, uncomplicated; R06.09 Other forms of dyspnea; Z88.1 Allergy status to other antibiotic agents; Z88.8 Allergy status to other drugs, medicaments and biological substances; Z79.899 Other long term (current) drug therapy; Y83.9 Surgical procedure, unspecified as the cause of abnormal reaction of the patient, or of later complication, without mention of misadventure at the time of the procedure; Z91.030 Bee allergy status
CPT/HCPCS: 36561; 71046; 76937; 99152; 99153; 99283-25; C1725; C1750; C1769; J1644; J2250; J3010; J7030; J7050; Q9967

== ENCOUNTER 2024-02-15 08:55 | Day surgery (SDC) | payer MEDICARE, OTHER ==
[~2024-02-15] VITALS: Ht 162.6 cm; Wt 108.4 kg
[~2024-02-15 08:55] MED LIST changes: +DULOXETINE HCL60 M1 PO; +GABA100 PO; +QUETIAPINE FUMA5012 PO
[2024-02-15] MEDS ORDERED: Heparin Sodium 1000 Units/ML 10ML MDV ONE (10:04)
[2024-02-15] MEDS ORDERED: NS 250 ML IV ONE (10:04)
[2024-02-15] MEDS ORDERED: FentaNYL Citrate 50 MCG/ML 2 ML Injection ONE (10:19)
[2024-02-15] MEDS ORDERED: NS 1,000 ML IV ONE (10:19)
[2024-02-15] MEDS ORDERED: Midazolam HCl 1MG / ML 2ML Vial ONE (10:19)
[2024-02-15] MEDS ORDERED: Heparin Sodium 5000 Units/ML 1ML MDV ONE ×3 (10:51→10:54)
--- NOTE | 2024-02-15 11:15 | NUR ---
PT BACK TO RECOVERY ROOM.
[2024-02-15 11:17] VITALS: BP 131/78
--- NOTE | 2024-02-15 11:24 | NUR ---
PT GIVEN JUICE. SITTING UP IN BED.
[2024-02-15 11:30] VITALS: BP 117/75
[2024-02-15 11:45] VITALS: BP 134/85
[2024-02-15 12:00] VITALS: BP 125/79
[2024-02-15 12:15] VITALS: BP 131/89
[2024-02-15 12:30] VITALS: BP 135/91
--- NOTE | 2024-02-15 12:46 | NUR ---
PT DRESSED, IV D/C CATHETER INTACT. PT WHEELED OUT TO [employer]
== END 2024-02-15 12:45 | disposition home or self-care (01) ==
LOC: MHTC 08:55
DX: T82.9XXA Unspecified complication of cardiac and vascular prosthetic device, implant and graft, initial encounter (principal); N18.6 End stage renal disease; F31.9 Bipolar disorder, unspecified; E78.5 Hyperlipidemia, unspecified; J45.909 Unspecified asthma, uncomplicated; E11.22 Type 2 diabetes mellitus with diabetic chronic kidney disease; Z79.899 Other long term (current) drug therapy; Z88.8 Allergy status to other drugs, medicaments and biological substances; Z91.030 Bee allergy status; Z99.2 Dependence on renal dialysis
CPT/HCPCS: 36415; 36558; 76937; 80048; 85007; 85027; 85610; 99152; 99153; C1750; C1769; C1894; J1644; J2250; J3010; J7030; J7050

== ENCOUNTER 2024-05-06 10:14 | Inpatient (IN) | payer MEDICARE, OTHER ==
[~2024-05-06] VITALS: Ht 162.6 cm; Wt 108.9 kg
[2024-05-06 14:37] LABS: BASOPHILS ABSOLUTE AUTO 0.06 K/mm3 (0.00-0.23); BASOPHILS PERCENT AUTO 1 % (0-2); EOSINOPHILS ABSOLUTE AUTO 0.28 K/mm3 (0.00-0.68); EOSINOPHILS PERCENT AUTO 3 % (0-6); Hematocrit 36.5 % (33.0-51.0); IMMATURE GRAN ABSOLUTE AUTO 0.05 K/mm3 (0.00-0.10); IMMATURE GRAN PERCENT AUTO 1 % (0-1); LYMPHOCYTES ABSOLUTE AUTO 1.15 K/mm3 (0.84-5.20); LYMPHOCYTES PERCENT AUTO 13 % (21-46); MONOCYTES ABSOLUTE AUTO 0.65 K/mm3 (0.16-1.47); MONOCYTES PERCENT AUTO 7 % (4-13); Mean Corpuscular HGB 33.2 pg (26.0-34.0); Mean Corpuscular HGB Conc 32.9 g/dL (31.5-36.5); Mean Corpuscular Volume 101 fL (80-100); NEUTROPHILS ABSOLUTE AUTO 6.94 K/mm3 (1.96-9.15); NEUTROPHILS PERCENT AUTO 76 % (41-73); Platelet Count 202 K/mm3 (150-400); RDW Coefficient Variation 14.7 % (11.7-14.2); RDW Standard Deviation 53.8 fL (35.1-46.3); Red Blood Cell Count 3.61 M/mm3 (3.80-5.20); White Blood Cell Count 9.13 K/mm3 (4.00-11.30)
[2024-05-06 14:54] LABS: Albumin, Blood 3.4 g/dL (3.4-5.0); Albumin/Globulin Ratio 0.8 (0.8-1.8); Bilirubin, Total 0.3 mg/dL (0.1-1.0); Calcium, Blood 10.1 mg/dL (8.5-10.1); Creatinine, Blood 5.61 mg/dL (0.40-1.00); Globulin, Blood 4.3 g/dL (2.2-4.0); Potassium, Blood 4.4 mmol/L (3.5-5.5); Total Protein, Blood 7.7 g/dL (6.4-8.2)
[2024-05-06] MEDS ORDERED: FLU VACC TS2024-25(6MOS UP)/PF 45 MCG/0.5 ML SYRINGE IM SCH (16:15)
--- NOTE | 2024-05-06 17:56 | NUR ---
PT ARRIVED TO ROOM AT 1730 AOX4 AND COOPERATIVE OF CARE. PT SETTLED INTO ROOM WITH CALL LIGHT IN REACH. NO DISTRESS NOTED INDEPENDENT WILL CONTINUETO MONITOR.
[2024-05-06 18:27] VITALS: BP 141/94
[2024-05-06 19:37] VITALS: BP 125/95
[2024-05-07 03:32] VITALS: BP 131/90
--- NOTE | 2024-05-07 03:39 | NUR ---
RADIOGRAPHER MAMMOGRAPHER SUMMARY VSS. ALERT AND ORIENTED. COOPERATIVE WITH CARE. VOICED WAS HERE FOR DIALYSIS AND NEEDEED A NEW PORT FOR TREATMENT. HAS BEEN NPO SINCE MIDNIGHT FOR PROCEDURE SCHEDULED IN THE AM. UP AD DARIEN, ABLE TO REPOSITION SELF IN BED WITHOUT ASSIST FOR COMFORT AND SKIN MAINTENANCE. HAS BEEN RESTING QUIETLY WITH FEW INTERRUPTIONS. CALL LIGHT IN REACH, RAILS UP X 2 AND BED IN LOW POSITION FOR SAFETY. WILL CONTINUE TO MONITOR
[2024-05-07 06:02] LABS: Hematocrit 33.3 % (33.0-51.0); Mean Corpuscular HGB 32.8 pg (26.0-34.0); Mean Corpuscular Volume 99 fL (80-100); Mean Platelet Volume 10.3 fL (9.1-12.4); Platelet Count 169 K/mm3 (150-400); RDW Coefficient Variation 14.7 % (11.7-14.2); RDW Standard Deviation 52.7 fL (35.1-46.3); Red Blood Cell Count 3.35 M/mm3 (3.80-5.20)
[2024-05-07 06:16] LABS: Albumin, Blood 3.1 g/dL (3.4-5.0); Anion Gap 13 mmol/L (3-11); Blood Urea Nitrogen 59 mg/dL (8-24); Bun/Creatinine Ratio 9.7 (12.0-20.0); CO2, Blood 24 mmol/L (21-32); Calcium, Blood 9.8 mg/dL (8.5-10.1); Chloride, Blood 111 mmol/L (98-108); Creatinine, Blood 6.09 mg/dL (0.40-1.00); Glomerular Filtration Rate 8 (60-); Glucose, Blood 126 mg/dL (70-99); Phosphorus, Blood 5.4 mg/dL (2.5-4.9); Potassium, Blood 4.6 mmol/L (3.5-5.5); Sodium, Blood 143 mmol/L (136-145)
[2024-05-07 07:19] VITALS: BP 138/93
[2024-05-07] MEDS ORDERED: Heparin Sodium 5000 Units/ML 1ML MDV SC SCH (09:00)
[2024-05-07] MEDS ORDERED: Albuterol HFA200 ACT/6.7 GM INH INH PRN (10:10)
[2024-05-07] MEDS ORDERED: Calcium Acetate 667 MG Gel Cap PO SCH (12:30)
[2024-05-07] MEDS ORDERED: Heparin Sodium 1000 Units/ML 10ML MDV ONE ×2 (14:40→16:55)
[2024-05-07] MEDS ORDERED: NS 250 ML IV ONE ×2 (14:40→16:41)
[2024-05-07 15:47] VITALS: BP 119/78
[2024-05-07] MEDS ORDERED: NS 500 ML IV ONE (16:17)
[2024-05-07] MEDS ORDERED: FentaNYL Citrate 50 MCG/ML 2 ML Injection ONE (16:17)
[2024-05-07] MEDS ORDERED: Midazolam HCl 1MG / ML 2ML Vial ONE (16:17)
--- NOTE | 2024-05-07 16:21 | NUR ---
PT HAS BEEN AOX4. PT WAITING FOR PORT TO BE REPLACED AND GOT VERY EMOTIONAL THROUGHOUT THE DAY. PT HAS BEEN CRYING AT TIMES BECAUSE SHE CAN'T EAT AND STATES SHE WAS TOLD SHE COULD GO HOME AFTER IT WAS PLACED TODAY BY A DOCTOR. PT HAS BEEN TALKED TO AND INFORMED SHE WILL HAVE THE PROCEDURE, BUT NOT SURE ON DISCHARGE SHE MAY NEED TO HAVE DIALYSIS. PT VERBALIZES SHE UNDERSTANDS,BUT STILL HAS TROUBLE WITH HER EMOTIONS. PT WAS JUST TRANSPORTED DOWN TO HAVE PROCEDURE. WILL CONTINUE TO MONITOR.
[2024-05-07] MEDS ORDERED: Vancomycin HCl 1000 MG ADDvantage ONE (16:41)
[2024-05-07 17:24] VITALS: BP 143/95
--- NOTE | 2024-05-07 17:58 | NUR ---
PT ARRIVED BACK TO ROOM, VITAL SIGNS STABLE NO DISTRESS NOTED. PT IS EATNG HER DINNER AND IN BETTER MOOD EMOTIONALLY. LATRICIA LOOKS CLEAN AND INTACT. WILL CONTINUE TO MONITOR.
[2024-05-07] MEDS ORDERED: Midodrine 5 MG Tab PO SCH (18:00)
[2024-05-07 19:11] VITALS: BP 121/80
[2024-05-07] MEDS ORDERED: QUEtiapine Fumarate 50 MG TAB PO SCH (21:00)
[2024-05-07] MEDS ORDERED: Topiramate 100 MG Tab PO SCH (21:00)
[2024-05-07] MEDS ORDERED: HyDROXyzine HCl 25 MG Tab PO SCH (21:00)
[2024-05-07] MEDS ORDERED: Benztropine Mesylate 1 MG Tab PO SCH (21:00)
[2024-05-07] MEDS ORDERED: OLANZapine ODT 10 MG Tab MM SCH (21:00)
[2024-05-08] VITALS (13 sets, daily range): BP systolic 98–134; BP diastolic 48–91
--- NOTE | 2024-05-08 05:00 | NUR ---
SHIFT SUMMARY PATIENT SLEPT IN LONG INTERVALS. DID NOT REQUIRE ANY PRN MEDS.
[2024-05-08] MEDS ORDERED: Levothyroxine Sodium 0.05 MG Tab PO SCH (06:00)
[2024-05-08] MEDS ORDERED: Pantoprazole Sodium 40 MG Tab PO SCH (06:00)
[2024-05-08 06:38] LABS: Hematocrit 32.3 % (33.0-51.0); Hemoglobin 10.7 g/dL (11.5-16.0)
[2024-05-08 06:56] LABS: Anion Gap 12 mmol/L (3-11); Blood Urea Nitrogen 65 mg/dL (8-24); Bun/Creatinine Ratio 10.3 (12.0-20.0); CO2, Blood 23 mmol/L (21-32); Calcium, Blood 9.1 mg/dL (8.5-10.1); Chloride, Blood 114 mmol/L (98-108); Creatinine, Blood 6.32 mg/dL (0.40-1.00); Glomerular Filtration Rate 7 (60-); Glucose, Blood 130 mg/dL (70-99); Magnesium, Blood 1.8 mg/dL (1.6-2.4); Phosphorus, Blood 4.8 mg/dL (2.5-4.9); Potassium, Blood 4.4 mmol/L (3.5-5.5); Sodium, Blood 145 mmol/L (136-145)
[2024-05-08] MEDS ORDERED: Anticoagulant Sod Citrate Soln 3 ML SYR INJ PRN (07:20)
[2024-05-08] MEDS ORDERED: Prenatal Vit/FE Fumarate/FA 1 Tab PO SCH (09:00)
[2024-05-08] MEDS ORDERED: Gabapentin 100 MG Cap PO SCH (09:00)
[2024-05-08] MEDS ORDERED: DULoxetine HCL 60 MG Capsule DR PO SCH (09:00)
[2024-05-08] MEDS ORDERED: Biotin 5 MG Cap PO SCH (09:00)
[2024-05-08] MEDS ORDERED: Atorvastatin 10 MG Tab PO SCH (09:00)
== END 2024-05-08 13:14 | disposition home or self-care (01) | DRG 698 ==
LOC: ER 10:14 → MEDS 10:15 → ER 10:15 → MEDS 17:22 → ER 17:23 → MEDS 17:58
PROVIDERS: Internal Medicine Nephrology; Physician Assistant; ADMIT Internal Medicine
PROC: 0J2TXYZ Change Other Device in Trunk Subcutaneous Tissue and Fascia, External Approach (ICD-10-PCS; principal; 2024-05-07)
PROC: 5A1D70Z Performance of Urinary Filtration, Intermittent, Less than 6 Hours Per Day (ICD-10-PCS; 2024-05-08)
DX: T82.41XA Breakdown (mechanical) of vascular dialysis catheter, initial encounter (principal); N18.6 End stage renal disease; Y71.8 Miscellaneous cardiovascular devices associated with adverse incidents, not elsewhere classified; Z99.2 Dependence on renal dialysis; E03.9 Hypothyroidism, unspecified; E78.5 Hyperlipidemia, unspecified; E11.22 Type 2 diabetes mellitus with diabetic chronic kidney disease; J45.909 Unspecified asthma, uncomplicated; F31.9 Bipolar disorder, unspecified; D63.1 Anemia in chronic kidney disease; Z88.8 Allergy status to other drugs, medicaments and biological substances; Z88.1 Allergy status to other antibiotic agents; Z79.899 Other long term (current) drug therapy; Z79.890 Hormone replacement therapy
CPT/HCPCS: 36415; 36581; 80053; 80069; 83735; 85014; 85018; 85025; 85027; 94760; 99152; 99284-25; A9270; C1750; C1769; G0378; J1644; J2250; J3010; J3370; J7040; J7050

== ENCOUNTER → 2024-09-02 | Outpatient (CLI) | payer MEDICARE, OTHER | LOC: LAB DAV 05:45 | DX: N18.6 End stage renal disease (principal); A49.9 Bacterial infection, unspecified | CPT/HCPCS: 87070; 87077; 87147; 87186; 87205 ==

== ENCOUNTER 2025-01-17 05:14 | Emergency (ER) | payer MEDICARE, OTHER ==
[~2025-01-17] VITALS: Ht 162.6 cm; Wt 114.3 kg
[2025-01-17 06:01] VITALS: BP 143/84
== END 2025-01-17 07:37 | disposition home or self-care (01) ==
LOC: ER 05:14
DX: Z00.00 Encounter for general adult medical examination without abnormal findings (principal)
CPT/HCPCS: 99282